=== PATIENT | female | born 1995 | race Caucasian/White ===

== ENCOUNTER 2017-12-08 01:42 | Inpatient (IN) | payer SELFPAY ==
[2017-12-08] MEDS ORDERED: Sodium Chloride 0.9% 10 ML Syringe FLUSH PRN (03:14)
[2017-12-08] MEDS ORDERED: Methylergonovine 0.2 MG/1 ML Amp IM PRN ×2 (03:14→14:18)
[2017-12-08] MEDS ORDERED: Lidocaine 1% 50 ML MDV INJECT PRN (03:14)
[2017-12-08] MEDS ORDERED: Misoprostol 200 MCG Tab PO PRN (03:14)
[2017-12-08] MEDS ORDERED: Butorphanol 1 MG/ML SDV IVPUSH PRN (03:14)
[2017-12-08] MEDS ORDERED: Carboprost Tromethamine 250 MCG/1 ML Amp IM PRN (03:14)
[2017-12-08] MEDS ORDERED: Sodium Chloride 0.9% 2.5 ML Syringe FLUSH PRN (03:14)
[2017-12-08] MEDS ORDERED: Tranexamic Acid 1,000 MG in Sodium Chloride 0.9% 100 ML IV PRN (03:14)
[2017-12-08] MEDS ORDERED: Water For Irrigation,Sterile 1,000 ML Container IRR PRN (03:14)
[2017-12-08] MEDS ORDERED: Oxytocin/0.9 % Sodium Chloride 30 UNIT/500 ML BAG IV SCH ×2 (03:15→08:30)
[2017-12-08] MEDS: Lactated Ringers 1,000 ML IV SCH ×2 (03:27→07:53)
[2017-12-08] MEDS: Nalbuphine 10 MG/1 ML Vial IVPUSH PRN ×2 (04:28→05:59)
--- NOTE | 2017-12-08 08:24 | PCM.PREANE ---
Preanesthetic Assessment - Anesthesia/Transfusion/Family Hx Anesthesia History: No Prior Anesthesia Family History of Anesthesia Reaction: No Transfusion History: No Prior Transfusion(s) - Review of Systems General: No Symptoms Pulmonary: No Symptoms Cardiovascular: No Symptoms Gastrointestinal: No Symptoms Neurological: No Symptoms Other: Reports: None - Physical Assessment Height: 5 ft 5 in Weight: 68.946 kg ASA Class: 2 Mental Status: Alert & Oriented x3 Airway Class: Mallampati = 2 Dentition: Reports: Normal Dentition Thyro-Mental Finger Breadths: 3 Mouth Opening Finger Breadths: 3 ROM/Head Extension: Full Lungs: Clear to Auscultation, Normal Respiratory Effort Cardiovascular: Regular Rate, Regular Rhythm - Lab Values: Laboratory Last Values WBC 9.37 K/uL (4.0-11.0) 12/08/17 03:24 RBC 4.20 M/uL (4.30-5.90) L 12/08/17 03:24 Hgb 13.5 g/dL (12.0-16.0) 12/08/17 03:24 Hct 38.8 % (36.0-46.0) 12/08/17 03:24 MCV 92.4 fL (80.0-98.0) 12/08/17 03:24 MCH 32.1 pg (27.0-32.0) H 12/08/17 03:24 MCHC 34.8 g/dL (31.0-37.0) 12/08/17 03:24 RDW Std Deviation 44.5 fl (28.0-62.0) 12/08/17 03:24 RDW Coeff of Cresencio 13 % (11.0-15.0) 12/08/17 03:24 Plt Count 196 K/uL (150-400) 12/08/17 03:24 MPV 10.00 fL (7.40-12.00) 12/08/17 03:24 Nucleated RBC % 0.0 /100WBC 12/08/17 03:24 Nucleated RBCs # 0 K/uL 12/08/17 03:24 Blood Type O POSITIVE 12/08/17 03:24 Antibody Screen NEGATIVE 12/08/17 03:24 - Allergies Allergies/Adverse Reactions: Allergies Allergy/AdvReac Type Severity Reaction Status Date / Time No Known Allergies Allergy Verified 12/08/17 03:13 - Acknowledgements Anesthesia Type Planned: Epidural Pt an Appropriate Candidate for the Planned Anesthesia: Yes Alternatives and Risks of Anesthesia Discussed w Pt/Guardian: Yes Pt/Guardian Understands and Agrees with Anesthesia Plan: Yes PreAnesthesia Questionnaire - Past Health History Medical/Surgical History: Denies Medical/Surgical History HEENT History: Reports: None Cardiovascular History: Reports: None Respiratory History: Reports: None Gastrointestinal History: Reports: GERD Genitourinary History: Reports: None [employer] History: Reports: , Spontaneous : 1 Para: 0 LMP (Approximate): Musculoskeletal History: Reports: None Neurological History: Reports: None Psychiatric History: Reports: None Endocrine/Metabolic History: Reports: None Hematologic History: Reports: None Immunologic History: Reports: None Oncologic (Cancer) History: Reports: None Dermatologic History: Reports: None - SUBSTANCE USE Smoking Status *Q: Never Smoker Second Hand Smoke Exposure: No Recreational Drug Use History: No - CURRENT (IN HOUSE) MEDS Current Meds: Current Medications Butorphanol Tartrate (Stadol) 1 mg IVPUSH ASDIRECTED PRN PRN Reason: Pain Last Admin: 12/08/17 03:31 Dose: 1 mg Carboprost Tromethamine (Hemabate Ds) 250 mcg IM ASDIRECTED PRN PRN Reason: Post Hemorrhage Lactated Ringer's (Ringers, Lactated) 1,000 mls @ 150 mls/hr IV ASDIRECTED DARYN Last Admin: 12/08/17 07:53 Dose: 150 mls/hr Oxytocin/Sodium Chloride (Oxytocin 30 Unit/500 Ml-Ns) 30 unit in 500 mls @ 999 mls/hr IV ASDIRECTED DARYN Tranexamic Acid 1,000 mg/ (Sodium Chloride) 110 mls @ 660 mls/hr IV ONETIME PRN PRN Reason: Bleeding Oxytocin/Sodium Chloride (Oxytocin 30 Unit/500 Ml-Ns) 30 unit in 500 mls @ 2 mls/hr IV TITRATE DARYN; 2 MUNITS/MIN PRN Reason: Protocol Lidocaine HCl (Xylocaine 1%) 50 ml INJECT .ONCE PRN PRN Reason: Laceration repair Methylergonovine Maleate (Methergine) 0.2 mg IM ASDIRECTED PRN PRN Reason: Post Hemorrhage Misoprostol (Cytotec) 200 mcg PO .ONCE PRN PRN Reason: Post Hemorrhage Nalbuphine HCl (Nubain) 10 mg IVPUSH Q1H PRN PRN Reason: Pain (severe 7-10) Last Admin: 12/08/17 05:59 Dose: 10 mg Sodium Chloride (Saline Flush) 10 ml FLUSH ASDIRECTED PRN PRN Reason: Keep Vein Open Sodium Chloride (Saline Flush) 2.5 ml FLUSH ASDIRECTED PRN PRN Reason: Keep Vein Open Sterile Water (Sterile Water For Irrigation) 1,000 ml IRR ASDIRECTED PRN PRN Reason: delivery Discontinued Medications Fentanyl/Bupivacaine HCl (Pogvconb-Peciy-Lw 2 Mcg/Ml-0.125%) Confirm Administered Dose 100 mls @ as directed EP .[facility] ONE Stop: 12/08/17 07:31
--- NOTE | 2017-12-08 14:16 | PCM.DEL ---
L & D Note - General Info Date of Service: 12/08/17 Mother's Due Date: 12/20/17 - Delivery Note Labor: Augmented by ARM, Augmented by Oxytocin Delivery Outcome: Livebirth Delivery Method: Spontaneous Vaginal Delivery-Single Presentation: Left Occiput Anterior (ELIZABET) Nuchal Cord: None Prep: Other Anesthesia Type: None, Local, Epidural Anesthetic: Lidocaine (Xylocaine) 1% Plain Local Anesthetic Volume: Other (10 ml) Episiotomy Type: None Laceration: 2nd Degree Suture type: Vicryl Suture size: 3-0 Placenta: Intact, Spontaneous Cord: 3 Vessels Estimated Blood Loss: 300 Resuscitation Needed: Yes Score 1 min: 7 Score 5 min: 8 - Patient Data Weight - Most Recent: 68.946 kg Lab Results Last 24 Hours: Laboratory Results - last 24 hr 12/08/17 12/08/17 Range/Units 03:24 03:24 WBC 9.37 (4.0-11.0) K/uL RBC 4.20 L (4.30-5.90) M/uL Hgb 13.5 (12.0-16.0) g/dL Hct 38.8 (36.0-46.0) % MCV 92.4 (80.0-98.0) fL MCH 32.1 H (27.0-32.0) pg MCHC 34.8 (31.0-37.0) g/dL RDW Std Deviation 44.5 (28.0-62.0) fl RDW Coeff of Cresencio 13 (11.0-15.0) % Plt Count 196 (150-400) K/uL MPV 10.00 (7.40-12.00) fL Nucleated RBC % 0.0 /100WBC Nucleated RBCs # 0 K/uL Blood Type O POSITIVE Antibody Screen NEGATIVE Med Orders - Current: Current Medications Butorphanol Tartrate (Stadol) 1 mg IVPUSH ASDIRECTED PRN PRN Reason: Pain Last Admin: 12/08/17 03:31 Dose: 1 mg Carboprost Tromethamine (Hemabate Ds) 250 mcg IM ASDIRECTED PRN PRN Reason: Post Hemorrhage Lactated Ringer's (Ringers, Lactated) 1,000 mls @ 150 mls/hr IV ASDIRECTED DARYN Last Admin: 12/08/17 07:53 Dose: 150 mls/hr Oxytocin/Sodium Chloride (Oxytocin 30 Unit/500 Ml-Ns) 30 unit in 500 mls @ 999 mls/hr IV ASDIRECTED DARYN Tranexamic Acid 1,000 mg/ (Sodium Chloride) 110 mls @ 660 mls/hr IV ONETIME PRN PRN Reason: Bleeding Oxytocin/Sodium Chloride (Oxytocin 30 Unit/500 Ml-Ns) 30 unit in 500 mls @ 2 mls/hr IV TITRATE DARYN; 2 MUNITS/MIN PRN Reason: Protocol Last Infusion: 12/08/17 10:22 Dose: 6 munits/min, 6 mls/hr Lidocaine HCl (Xylocaine 1%) 50 ml INJECT .ONCE PRN PRN Reason: Laceration repair Methylergonovine Maleate (Methergine) 0.2 mg IM ASDIRECTED PRN PRN Reason: Post Hemorrhage Misoprostol (Cytotec) 200 mcg PO .ONCE PRN PRN Reason: Post Hemorrhage Nalbuphine HCl (Nubain) 10 mg IVPUSH Q1H PRN PRN Reason: Pain (severe 7-10) Last Admin: 12/08/17 05:59 Dose: 10 mg Sodium Chloride (Saline Flush) 10 ml FLUSH ASDIRECTED PRN PRN Reason: Keep Vein Open Sodium Chloride (Saline Flush) 2.5 ml FLUSH ASDIRECTED PRN PRN Reason: Keep Vein Open Sterile Water (Sterile Water For Irrigation) 1,000 ml IRR ASDIRECTED PRN PRN Reason: delivery Discontinued Medications Fentanyl/Bupivacaine HCl (Qotqupoj-Vljhy-Om 2 Mcg/Ml-0.125%) Confirm Administered Dose 100 mls @ as directed EP .[facility]-MED ONE Stop: 12/08/17 07:31 Last Admin: 12/08/17 08:40 Dose: Not Given - Problem List & Annotations (1) Vaginal delivery SNOMED Code(s): 074991874 Code(s): O80 - ENCOUNTER FOR FULL-TERM UNCOMPLICATED DELIVERY Status: Acute Current Visit: Yes - Problem List Review Problem List Initiated/Reviewed/Updated: Yes
[2017-12-08] MEDS ORDERED: oxyCODONE 5 MG Tab PO PRN (14:18)
[2017-12-08] MEDS ORDERED: Acetaminophen 500 MG Tab PO PRN ×2 (14:18)
[2017-12-08] MEDS ORDERED: Bisacodyl 10 MG Supp RECTAL PRN (14:18)
[2017-12-08] MEDS ORDERED: Ibuprofen 400 MG Tab PO PRN (14:18)
[2017-12-08] MEDS ORDERED: Docusate Sodium 100 MG Cap PO PRN (14:18)
[2017-12-08] MEDS ORDERED: Witch Hazel Medicated Pads 40/Jar TOP PRN (14:18)
[2017-12-08] MEDS ORDERED: Lanolin 100% Cream 7 GM Tube TOP PRN (14:18)
[2017-12-08] MEDS ORDERED: Benzocaine/Menthol 20%-0.5% Spray 78 GM Cannister TOP PRN (14:18)
--- NOTE | 2017-12-08 14:54 | OR ---
SURGEON: Rhonda Bautista M.D. DATE OF PROCEDURE: 12/08/2017 PREOPERATIVE DIAGNOSIS: A 38 and 2/7th week intrauterine , active spontaneous labor. POSTOPERATIVE DIAGNOSIS: A 38 and 2/7th week intrauterine , active spontaneous labor. PROCEDURE: Pitocin augmentation of labor, term spontaneous vaginal delivery, repair of second-degree laceration. ANESTHESIA: Epidural. ESTIMATED BLOOD LOSS: Less than 300 mL. FINDINGS: Live born female, score 7 and 8, weighing 3570 g. Placenta, spontaneous. Schultze intact with 3 vessels. Second-degree perineal laceration repaired. COMPLICATIONS: None known. Mother and baby in LDRP in good condition. BRIEF HISTORY: This is a 22-year-old female. She is G2, P0-0-1-0. She presents at 38 and 4/7th weeks' gestation in active spontaneous labor and she has had uncomplicated care with Dr. Smith, for whom I am covering. She presented initially 2 to 3 cm, she did change to 4 cm dilation. She is group B strep negative. She had minimal change house attendant 3 - 4 hours. Once she had reached 4 cm dilatation, artificial rupture of membranes was performed. Clear fluid noted and Pitocin augmentation was initiated. She progressed to complete. DESCRIPTION OF PROCEDURE: With the patient in dorsal lithotomy position, the patient pushed over a 1-hour and 15-minute time period to a 5+ station, at which time the head was delivered spontaneously and atraumatically over the perineum with support with subsequent delivery of the 's shoulders and body without any difficulty. The was bulb suctioned by nose and mouth and handed to the mother in the presence of the nurse attending delivery. The infant is a liveborn female, score 7 and 8, weighing 3570 g. After the cord had ceased to pulsate, it was doubly clamped and cut and Pitocin was initiated to assist with delivery of the placenta, which was delivered spontaneously, Schultze intact with 3 vessels. Upon inspection of the pelvis and perineum, there were no periurethral, vaginal sidewall, cervical, or rectal lacerations. There was a second-degree perineal laceration, which was treated with 10 mL of 1% lidocaine followed by 3-0 Polysorb in a running locked fashion for the vaginal mucosa, a deep running suture of the same for the perineum, and a subcuticular suture of the same for the skin. There was a small abrasion that was bleeding at the 7 o'clock position of the vaginal introitus. A single [id number]-[id number] suture was placed for hemostasis. Final sponge, needle, and instrument counts were correct. There were no known complications. Mother and baby remained in LDRP in good condition. RAY NORTH /[id number] [id number]
[2017-12-08] MEDS: Ibuprofen 800 MG Tab PO PRN ×2 (15:54→22:30)
--- NOTE | 2017-12-08 18:08 | PCM48HPAN ---
Post Anesthesia Note - EVALUATION WITHIN 48HRS OF ANESTHETIC Vital Signs in Normal Range: Yes Patient Participated in Evaluation: Yes Respiratory Function Stable: Yes Airway Patent: Yes Cardiovascular Function Stable: Yes Hydration Status Stable: Yes Pain Control Satisfactory: Yes Nausea and Vomiting Control Satisfactory: Yes Mental Status Recovered: Yes - COMMENTS/OBSERVATIONS Free Text/Narrative:: Sitting up in bed and denies any complaints at this time.
[2017-12-09] MEDS: Ibuprofen 800 MG Tab PO PRN (09:25)
--- NOTE | 2017-12-09 14:10 | PCM.PNPP ---
- General Info Date of Service: 12/09/17 Functional Status: Reports: Pain Controlled, Tolerating Diet, Ambulating, Urinating - Review of Systems General: Reports: No Symptoms HEENT: Reports: No Symptoms Pulmonary: Reports: No Symptoms Cardiovascular: Reports: No Symptoms Gastrointestinal: Reports: No Symptoms Genitourinary: Reports: No Symptoms Musculoskeletal: Reports: No Symptoms Skin: Reports: No Symptoms Neurological: Reports: No Symptoms Psychiatric: Reports: No Symptoms - Patient Data Vital Signs - Most Recent: Last Vital Signs Temp 36.6 C 12/09/17 07:30 Pulse 76 12/09/17 07:30 Resp 16 12/09/17 07:30 BP 115/66 12/09/17 07:30 Pulse Ox 96 12/09/17 07:30 Weight - Most Recent: 68.946 kg Lab Results - Last 24 Hours: Laboratory Results - last 24 hr 12/09/17 Range/Units 05:33 Hgb 12.1 (12.0-16.0) g/dL Hct 34.6 L (36.0-46.0) % Med Orders - Current: Current Medications Acetaminophen (Tylenol Extra Strength) 500 mg PO Q4H PRN PRN Reason: Pain Acetaminophen (Tylenol Extra Strength) 1,000 mg PO Q4H PRN PRN Reason: Pain Benzocaine/Menthol (Dermoplast Pain Relief 20%-0.5% [place]) 78 gm TOP ASDIRECTED PRN PRN Reason: Perineal Comfort Measure Last Admin: 12/08/17 15:53 Dose: 1 can Bisacodyl (Dulcolax) 10 mg RECTAL .ONCE PRN PRN Reason: Constipation Docusate Sodium (Colace) 100 mg PO BID PRN PRN Reason: Constipation Emollient Ointment (Lansinoh Hpa) 0 gm TOP ASDIRECTED PRN PRN Reason: Sore Nipples Last Admin: 12/08/17 15:54 Dose: 1 tube Ibuprofen (Motrin) 400 mg PO Q4H PRN PRN Reason: Pain Ibuprofen (Motrin) 800 mg PO Q6H PRN PRN Reason: Pain Last Admin: 12/09/17 09:25 Dose: 800 mg Methylergonovine Maleate (Methergine) 0.2 mg IM .ONCE PRN PRN Reason: Excessive Vaginal Bleeding Oxycodone HCl (Oxycodone) 5 mg PO Q2H PRN PRN Reason: Pain Witch Buffy (Tucks) 1 pad TOP ASDIRECTED PRN PRN Reason: comfort care Last Admin: 12/08/17 16:54 Dose: 1 tub Discontinued Medications Butorphanol Tartrate (Stadol) 1 mg IVPUSH ASDIRECTED PRN PRN Reason: Pain Last Admin: 12/08/17 03:31 Dose: 1 mg Carboprost Tromethamine (Hemabate Ds) 250 mcg IM ASDIRECTED PRN PRN Reason: Post Hemorrhage Lactated Ringer's (Ringers, Lactated) 1,000 mls @ 150 mls/hr IV ASDIRECTED DARYN Last Admin: 12/08/17 07:53 Dose: 150 mls/hr Oxytocin/Sodium Chloride (Oxytocin 30 Unit/500 Ml-Ns) 30 unit in 500 mls @ 999 mls/hr IV ASDIRECTED DARYN Tranexamic Acid 1,000 mg/ (Sodium Chloride) 110 mls @ 660 mls/hr IV ONETIME PRN PRN Reason: Bleeding Fentanyl/Bupivacaine HCl (Azecscao-Fblcd-Qa 2 Mcg/Ml-0.125%) Confirm Administered Dose 100 mls @ as directed EP .[facility]-MED ONE Stop: 12/08/17 07:31 Last Admin: 12/08/17 08:40 Dose: Not Given Oxytocin/Sodium Chloride (Oxytocin 30 Unit/500 Ml-Ns) 30 unit in 500 mls @ 2 mls/hr IV TITRATE DARYN; 2 MUNITS/MIN PRN Reason: Protocol Last Infusion: 12/08/17 10:22 Dose: 6 munits/min, 6 mls/hr Lidocaine HCl (Xylocaine 1%) 50 ml INJECT .ONCE PRN PRN Reason: Laceration repair Last Admin: 12/08/17 14:21 Dose: 50 ml Methylergonovine Maleate (Methergine) 0.2 mg IM ASDIRECTED PRN PRN Reason: Post Hemorrhage Misoprostol (Cytotec) 200 mcg PO .ONCE PRN PRN Reason: Post Hemorrhage Nalbuphine HCl (Nubain) 10 mg IVPUSH Q1H PRN PRN Reason: Pain (severe 7-10) Last Admin: 12/08/17 05:59 Dose: 10 mg Sodium Chloride (Saline Flush) 10 ml FLUSH ASDIRECTED PRN PRN Reason: Keep Vein Open Sodium Chloride (Saline Flush) 2.5 ml FLUSH ASDIRECTED PRN PRN Reason: Keep Vein Open Sterile Water (Sterile Water For Irrigation) 1,000 ml IRR ASDIRECTED PRN PRN Reason: delivery Last Admin: 12/08/17 14:21 Dose: 1,000 ml - Interaction Infant Disposition, : Abrams in Room with Family Infant Interaction: Holding Infant Feeding: Breastfed Infant; Nursed Well Support Person: - Recovery Exam Fundal Tone: Firm Fundal Level: 1 Fingerbreadths Below Umbilicus Fundal Placement: Midline Lochia Amount: Scant Lochia Color: Rubra/Red Perineum Description: Other (see below) Other Perinuem Description: 2nd degree laceration Episiotomy/Laceration: Approximated Bladder Status: Voiding Urinary Elimination: Voided - Exam General: Alert, Oriented HEENT: Pupils Equal Neck: Supple Lungs: Normal Respiratory Effort GI/Abdominal Exam: Soft, Non-Tender, No Organomegaly, No Distention, No Abnormal Bruit, No Mass, Pelvis Stable Extremities: Normal Inspection, Normal Range of Motion, Non-Tender, No Pedal Edema, Normal Capillary Refill Skin: Warm, Dry, Intact Neurological: No New Focal Deficit Psy/Mental Status: Alert, Normal Affect, Normal Mood - Problem List & Annotations (1) Vaginal delivery SNOMED Code(s): 180813242 Code(s): O80 - ENCOUNTER FOR FULL-TERM UNCOMPLICATED DELIVERY Status: Acute Current Visit: Yes - Problem List Review Problem List Initiated/Reviewed/Updated: Yes - My Orders Last 24 Hours: My Active Orders 12/08/17 14:18 Patient Status [ADT] Routine May Shower [RC] ASDIRECTED Up ad Mariann [RC] ASDIRECTED Vital Signs [RC] PER UNIT ROUTINE Acetaminophen [Tylenol Extra Strength] 1,000 mg PO Q4H PRN Acetaminophen [Tylenol Extra Strength] 500 mg PO Q4H PRN Benzocaine/Menthol [Dermoplast Pain Relief 20%-0.5% [place]] 78 gm TOP ASDIRECTED PRN Bisacodyl [Dulcolax] 10 mg RECTAL .ONCE PRN Docusate Sodium [Colace] 100 mg PO BID PRN Ibuprofen [Motrin] 400 mg PO Q4H PRN Ibuprofen [Motrin] 800 mg PO Q6H PRN Lanolin [Lansinoh HPA] See Dose Instructions TOP ASDIRECTED PRN Methylergonovine [Methergine] 0.2 mg IM .ONCE PRN Witch Buffy [Tucks] 1 pad TOP ASDIRECTED PRN oxyCODONE 5 mg PO Q2H PRN Assess Lochia [WOMSER] Per Unit Routine Assess Uterine Involution [WOMSER] Per Unit Routine Peripheral IV Discontinue [OM.PC] Routine Resuscitation Status Routine 12/08/17 14:19 Perineal Care [OM.PC] Per Unit Routine 12/08/17 Dinner Regular Diet [DIET] - Assessment Assessment:: PPD#1 after stable, minimal lochia, well, would like to go home today. - Plan Plan:: Discharge instructions reveiwed, dismiss to home today, follow up with Dr. Smith.
== END 2017-12-09 17:45 | disposition home or self-care (01) | DRG 775 ==
LOC: MW.OBCHECK 01:42 → MW.OB 01:47 → MW.OBCHECK 03:14 → MW.OB 03:14 → OBSVTOIN 14:18 → MW.OB 17:27
PROVIDERS: ADMIT Obstetrics & Gynecology; ATTEND Obstetrics & Gynecology
PROC: 10E0XZZ Delivery of Products of Conception, External Approach (ICD-10-PCS; principal; 2017-12-08)
PROC: 0KQM0ZZ Repair Perineum Muscle, Open Approach (ICD-10-PCS; 2017-12-08)
PROC: 10907ZC Drainage of Amniotic Fluid, Therapeutic from Products of Conception, Via Natural or Artificial Opening (ICD-10-PCS; 2017-12-08)
DX: O70.1 Second degree perineal laceration during delivery (principal); Z37.0 Single live birth; Z3A.38 38 weeks gestation of pregnancy
CPT/HCPCS: 36415; 51702; 59025; 59409; 85014; 85018; 85027; 86850; 86900; 86901; A9270-GY; J0595; J2300; J2590; J7120

== ENCOUNTER 2018-12-03 20:20 | Inpatient (IN) | payer SELFPAY ==
[2018-12-03] MEDS ORDERED: Sodium Chloride 0.9% 10 ML SDV IV PRN (20:31)
[2018-12-03] MEDS ORDERED: Tranexamic Acid 1,000 MG in Sodium Chloride 0.9% 100 ML IV PRN (20:31)
[2018-12-03] MEDS ORDERED: Butorphanol 1 MG/ML SDV IVPUSH PRN (20:31)
[2018-12-03] MEDS ORDERED: Carboprost Tromethamine 250 MCG/1 ML Amp IM PRN (20:31)
[2018-12-03] MEDS ORDERED: Water For Irrigation,Sterile 1,000 ML Container IRR PRN (20:31)
[2018-12-03] MEDS ORDERED: Methylergonovine 0.2 MG/1 ML Amp IM PRN (20:31)
[2018-12-03] MEDS ORDERED: Sodium Chloride 0.9% 10 ML Syringe FLUSH PRN (20:31)
[2018-12-03] MEDS ORDERED: Misoprostol 200 MCG Tab PO PRN (20:31)
[2018-12-03] MEDS ORDERED: Sodium Chloride 0.9% 2.5 ML Syringe FLUSH PRN (20:31)
[2018-12-03] MEDS ORDERED: Lidocaine 1% 50 ML MDV INJECT PRN (20:31)
[2018-12-03] MEDS ORDERED: Nalbuphine 10 MG/1 ML Vial IVPUSH PRN (20:31)
[2018-12-03] MEDS ORDERED: Sodium Chloride 0.9% 0 ML ONE (20:32)
[2018-12-03] MEDS ORDERED: Lactated Ringers 1,000 ML IV SCH (20:45)
[2018-12-03] MEDS ORDERED: Oxytocin/0.9 % Sodium Chloride 30 UNIT/500 ML BAG IV SCH (20:45)
[2018-12-03] MEDS: Ampicillin 2 GM AdvVial IV ONE ×2 (20:45→20:47)
[2018-12-03] MEDS ORDERED: Ampicillin 2 GM in Sodium Chloride 0.9% 50 ML IV SCH (21:00)
--- NOTE | 2018-12-03 21:20 | PCM.LDHP ---
L&D History of Present Illness - General Date of Service: 12/03/18 Admit Problem/Dx: Patient Status Order with Admit Dx/Problem 12/03/18 20:31 Patient Status [ADT] Routine Admission Diagnosis/Problem Admission Diagnosis/Problem 12/03/18 21:14 23yo EDC 12/15/2018 38 2/7wks O+, RI, GBS pos. Comes in active labor. 6cm , intact Source of Information: Patient History Limitations: Reports: No Limitations - History of Present Illness Timing/Duration: Reports: minutes: Location, : Reports: Abdomen Quality: Reports: Ache, Stabbing Pain Score: 10 Improves with: Reports: None Worsens with: Reports: None Associated Symptoms: Reports: N - Related Data Allergies/Adverse Reactions: Allergies Allergy/AdvReac Type Severity Reaction Status Date / Time No Known Allergies Allergy Verified 12/08/17 03:13 Past Medical History - Past Health History Medical/Surgical History: Denies Medical/Surgical History HEENT History: Reports: None Cardiovascular History: Reports: None Respiratory History: Reports: None Gastrointestinal History: Reports: GERD Genitourinary History: Reports: None [employer]PERATOR History: 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: , Spontaneous Musculoskeletal History: Reports: None Neurological History: Reports: None Psychiatric History: Reports: None Endocrine/Metabolic History: Reports: None Hematologic History: Reports: None Immunologic History: Reports: None Oncologic (Cancer) History: Reports: None Dermatologic History: Reports: None Social & Family History - Family History Family Medical History: Noncontributory - Caffeine Use Caffeine Use: Reports: Coffee, Soda H&P Review of Systems - Review of Systems: Review Of Systems: See Below General: Reports: No Symptoms HEENT: Reports: No Symptoms Pulmonary: Reports: No Symptoms Cardiovascular: Reports: No Symptoms Gastrointestinal: Reports: No Symptoms Genitourinary: Reports: No Symptoms Musculoskeletal: Reports: No Symptoms Skin: Reports: No Symptoms Psychiatric: Reports: No Symptoms Neurological: Reports: No Symptoms Hematologic/Lymphatic: Reports: No Symptoms Immunologic: Reports: No Symptoms L&D Exam - Exam Exam: See Below - Vital Signs Weight: 81.647 kg - OB Specific Contraction Intensity: Strong Movement: Active Heart Tones: Present Heart Tones per Min: 140 Heart Rate (FHR) Variability: Moderate (6-25 bmp) Presentation: Vertex - Farfan Score Farfan Score Cervix Position: Midposition Farfan Score Consistency: Soft Farfan Score Effacement: >80% Farfan Score Dilation: > 5 cm Farfan Score Infant's Station: -1 ,0 Farfan Score Total: 11 - Exam General: Alert, Oriented, Cooperative HEENT: Hearing Intact Lungs: Normal Respiratory Effort GI/Abdominal Exam: Soft, Non-Tender Rectal Exam: Deferred Genitourinary: Normal external exam, Normal bimanual exam, Cervical dilitation. No: Cervical fluid, Vaginal bleeding Back Exam: Normal Inspection, Full Range of Motion Extremities: Normal Inspection, Normal Range of Motion, Non-Tender, No Pedal Edema, Normal Capillary Refill Skin: Warm, Dry, Intact Neurological: Cranial Nerves Intact, Reflexes Equal Bilateral, Strength Equal Bilateral, Normal Gait, Normal Speech, Normal Tone Psychiatric: Alert, Normal Affect, Normal Mood - Patient Data Lab Results Last 24 hrs: Laboratory Results - last 24 hr 12/03/18 Range/Units 20:42 WBC 8.04 (4.0-11.0) K/uL RBC 4.10 L (4.30-5.90) M/uL Hgb 13.0 (12.0-16.0) g/dL Hct 37.5 (36.0-46.0) % MCV 91.5 (80.0-98.0) fL MCH 31.7 (27.0-32.0) pg MCHC 34.7 (31.0-37.0) g/dL RDW Std Deviation 43.3 (28.0-62.0) fl RDW Coeff of Cresencio 13 (11.0-15.0) % Plt Count 238 (150-400) K/uL MPV 10.80 (7.40-12.00) fL Nucleated RBC % 0.0 /100WBC Nucleated RBCs # 0 K/uL Result Diagrams: 12/03/18 20:42 - Problem List (1) Supervision of normal IUP (intrauterine ) in multigravida SNOMED Code(s): 879869381, 839879365, 913978140 ICD Code: Z34.80 - ENCOUNTER FOR SUPRVSN OF NORMAL , UNSP TRIMESTER Status: Acute Priority: High Current Visit: Yes Qualifiers: Trimester: third trimester Qualified Code(s): Z34.83 - Encounter for supervision of other normal , third trimester Problem List Initiated/Reviewed/Updated: Yes Orders Last 24hrs: Active Orders 24 hr Category Date Time Status Patient Status [ADT] Routine ADT 12/03/18 20:31 Active Heart Tones [RC] CONTINUOUS Care 12/03/18 20:31 Active Non Stress Test [RC] PER UNIT ROUTINE Care 12/03/18 20:31 Active May Shower [RC] ASDIRECTED Care 12/03/18 20:31 Active Notify Provider [RC] PRN Care 12/03/18 20:31 Active Up ad Mariann [RC] ASDIRECTED Care 12/03/18 20:31 Active Vaginal Exam [RC] PRN Care 12/03/18 20:31 Active Vital Signs [RC] PER UNIT ROUTINE Care 12/03/18 20:31 Active TYPE AND SCREEN [BBK] Routine Lab 12/03/18 20:42 Received Ampicillin 2 gm Med 12/03/18 21:00 Active Sodium Chloride 0.9% [Normal Saline] 50 ml IV Q6H Butorphanol [Stadol] Med 12/03/18 20:31 Active 1 mg IVPUSH Q1H PRN Carboprost Tromethamine [Hemabate DS] Med 12/03/18 20:31 Active 250 mcg IM ASDIRECTED PRN Lactated Ringers [Ringers, Lactated] 1,000 ml Med 12/03/18 20:45 Active IV ASDIRECTED Lidocaine 1% [Xylocaine 1%] Med 12/03/18 20:31 Active 50 ml INJECT ONETIME PRN Methylergonovine [Methergine] Med 12/03/18 20:31 Active 0.2 mg IM ASDIRECTED PRN Nalbuphine [Nubain] Med 12/03/18 20:31 Active 10 mg IVPUSH Q1H PRN Oxytocin/0.9 % Sodium Chloride [Oxytocin 30 Unit/500 ML Med 12/03/18 20:45 Active -NS] 30 unit in 500 ml IV TITRATE Sodium Chloride 0.9% [Normal Saline] Med 12/03/18 20:31 Active 10 ml IV ASDIRECTED PRN Sodium Chloride 0.9% [Saline Flush] Med 12/03/18 20:31 Active 10 ml FLUSH ASDIRECTED PRN Sodium Chloride 0.9% [Saline Flush] Med 12/03/18 20:31 Active 2.5 ml FLUSH ASDIRECTED PRN Tranexamic Acid [Cyklokapron] 1,000 mg Med 12/03/18 20:31 Active Sodium Chloride 0.9% [Normal Saline] 100 ml IV ONETIME Water For Irrigation,Sterile [Sterile Water for Med 12/03/18 20:31 Active Irrigation] 1,000 ml IRR ASDIRECTED PRN miSOPROStol [Cytotec] Med 12/03/18 20:31 Active 200 mcg PO ONETIME PRN Scalp Electrode [WOMSER] Per Unit Routine Oth 12/03/18 20:31 Ordered Peripheral IV Insertion Adult [OM.PC] Routine Oth 12/03/18 20:31 Ordered Resuscitation Status Routine Resus Stat 12/03/18 20:31 Ordered Medication Orders Butorphanol Tartrate (Stadol) 1 mg IVPUSH Q1H PRN PRN Reason: Pain Carboprost Tromethamine (Hemabate Ds) 250 mcg IM ASDIRECTED PRN PRN Reason: Post Hemorrhage Lactated Ringer's (Ringers, Lactated) 1,000 mls @ 150 mls/hr IV ASDIRECTED [facility] Last Admin: 12/03/18 21:01 Dose: 999 mls/hr Oxytocin/Sodium Chloride (Oxytocin 30 Unit/500 Ml-Ns) 30 unit in 500 mls @ 555 mls/hr IV TITRATE [facility] Tranexamic Acid 1,000 mg/ (Sodium Chloride) 110 mls @ 660 mls/hr IV ONETIME PRN PRN Reason: Bleeding Ampicillin Sodium 2 gm/ Sodium (Chloride) 50 mls @ 100 mls/hr IV Q6H [facility] Lidocaine HCl (Xylocaine 1%) 50 ml INJECT ONETIME PRN PRN Reason: Laceration repair Methylergonovine Maleate (Methergine) 0.2 mg IM ASDIRECTED PRN PRN Reason: Post Hemorrhage Misoprostol (Cytotec) 200 mcg PO ONETIME PRN PRN Reason: Post Hemorrhage Nalbuphine HCl (Nubain) 10 mg IVPUSH Q1H PRN PRN Reason: Pain (severe 7-10) Last Admin: 12/03/18 20:55 Dose: 10 mg Sodium Chloride (Saline Flush) 10 ml FLUSH ASDIRECTED PRN PRN Reason: Keep Vein Open Sodium Chloride (Saline Flush) 2.5 ml FLUSH ASDIRECTED PRN PRN Reason: Keep Vein Open Sodium Chloride (Normal Saline) 10 ml IV ASDIRECTED PRN PRN Reason: IV Use Sterile Water (Sterile Water For Irrigation) 1,000 ml IRR ASDIRECTED PRN PRN Reason: delivery Assessment/Plan Comment:: Labor A: 23yo EDC 12/15/2018 38 2/7wks O+, RI, GBS pos. Comes in active labor. 6cm, intact P: Admit, Amp for GBS pos. IV pain meds until epidural, anticipate . Dr Smith updated
[2018-12-03] MEDS ORDERED: Lidocaine HCl/EPINEPHrine 5 ML IJ ONE (21:44)
[2018-12-03] MEDS ORDERED: fentaNYL 100 MCG/2 ML SDV ONE (21:44)
--- NOTE | 2018-12-03 23:00 | PCM.PREANE ---
Preanesthetic Assessment - Anesthesia/Transfusion/Family Hx Anesthesia History: Prior Anesthesia Without Reaction Family History of Anesthesia Reaction: No Transfusion History: No Prior Transfusion(s) - Review of Systems General: No Symptoms Pulmonary: No Symptoms Cardiovascular: No Symptoms Gastrointestinal: No Symptoms Neurological: No Symptoms Other: Reports: None, Anxiety - Physical Assessment Height: 5 ft 5 in Weight: 81.647 kg ASA Class: 2 Mental Status: Alert & Oriented x3 Airway Class: Mallampati = 2 Dentition: Reports: Normal Dentition ROM/Head Extension: Full Lungs: Clear to Auscultation Cardiovascular: Regular Rate - Lab Values: Laboratory Last Values WBC 8.04 K/uL (4.0-11.0) 12/03/18 20:42 RBC 4.10 M/uL (4.30-5.90) L 12/03/18 20:42 Hgb 13.0 g/dL (12.0-16.0) 12/03/18 20:42 Hct 37.5 % (36.0-46.0) 12/03/18 20:42 MCV 91.5 fL (80.0-98.0) 12/03/18 20:42 MCH 31.7 pg (27.0-32.0) 12/03/18 20:42 MCHC 34.7 g/dL (31.0-37.0) 12/03/18 20:42 RDW Std Deviation 43.3 fl (28.0-62.0) 12/03/18 20:42 RDW Coeff of Cresencio 13 % (11.0-15.0) 12/03/18 20:42 Plt Count 238 K/uL (150-400) 12/03/18 20:42 MPV 10.80 fL (7.40-12.00) 12/03/18 20:42 Nucleated RBC % 0.0 /100WBC 12/03/18 20:42 Nucleated RBCs # 0 K/uL 12/03/18 20:42 Blood Type O POSITIVE 12/03/18 20:42 Antibody Screen NEGATIVE 12/03/18 20:42 - Allergies Allergies/Adverse Reactions: Allergies Allergy/AdvReac Type Severity Reaction Status Date / Time No Known Allergies Allergy Verified 12/08/17 03:13 - Blood Blood Available: No Product(s) Available: None - Anesthesia Plan Pre-Op Medication Ordered: None - Acknowledgements Anesthesia Type Planned: Epidural Pt an Appropriate Candidate for the Planned Anesthesia: Yes Alternatives and Risks of Anesthesia Discussed w Pt/Guardian: Yes Pt/Guardian Understands and Agrees with Anesthesia Plan: Yes PreAnesthesia Questionnaire - Past Health History Medical/Surgical History: Denies Medical/Surgical History HEENT History: Reports: None Cardiovascular History: Reports: None Respiratory History: Reports: None Gastrointestinal History: Reports: GERD Genitourinary History: Reports: None 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: , 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 Musculoskeletal History: Reports: None Neurological History: Reports: None Psychiatric History: Reports: None Endocrine/Metabolic History: Reports: None Hematologic History: Reports: None Immunologic History: Reports: None Oncologic (Cancer) History: Reports: None Dermatologic History: Reports: None - CURRENT (IN HOUSE) MEDS Current Meds: Current Medications Butorphanol Tartrate (Stadol) 1 mg IVPUSH Q1H PRN PRN Reason: Pain Carboprost Tromethamine (Hemabate Ds) 250 mcg IM ASDIRECTED PRN PRN Reason: Post Hemorrhage Lactated Ringer's (Ringers, Lactated) 1,000 mls @ 150 mls/hr IV ASDIRECTED [facility] Last Admin: 12/03/18 21:01 Dose: 999 mls/hr Oxytocin/Sodium Chloride (Oxytocin 30 Unit/500 Ml-Ns) 30 unit in 500 mls @ 555 mls/hr IV TITRATE [facility] Tranexamic Acid 1,000 mg/ (Sodium Chloride) 110 mls @ 660 mls/hr IV ONETIME PRN PRN Reason: Bleeding Ampicillin Sodium 2 gm/ Sodium (Chloride) 50 mls @ 100 mls/hr IV Q6H [facility] Lidocaine HCl (Xylocaine 1%) 50 ml INJECT ONETIME PRN PRN Reason: Laceration repair Methylergonovine Maleate (Methergine) 0.2 mg IM ASDIRECTED PRN PRN Reason: Post Hemorrhage Misoprostol (Cytotec) 200 mcg PO ONETIME PRN PRN Reason: Post Hemorrhage Nalbuphine HCl (Nubain) 10 mg IVPUSH Q1H PRN PRN Reason: Pain (severe 7-10) Last Admin: 12/03/18 20:55 Dose: 10 mg Sodium Chloride (Saline Flush) 10 ml FLUSH ASDIRECTED PRN PRN Reason: Keep Vein Open Sodium Chloride (Saline Flush) 2.5 ml FLUSH ASDIRECTED PRN PRN Reason: Keep Vein Open Sodium Chloride (Normal Saline) 10 ml IV ASDIRECTED PRN PRN Reason: IV Use Sterile Water (Sterile Water For Irrigation) 1,000 ml IRR ASDIRECTED PRN PRN Reason: delivery Discontinued Medications Ampicillin Sodium (Ampicillin) Confirm Administered Dose 2 gm IV .STK-MED ONE Stop: 12/03/18 20:33 Last Admin: 12/03/18 20:47 Dose: 2 gm Fentanyl (Sublimaze) Confirm Administered Dose 100 mcg .ROUTE .STK-MED ONE Stop: 12/03/18 21:45 Sodium Chloride (Normal Saline) Confirm Administered Dose 100 mls @ as directed .ROUTE .STK-MED ONE Stop: 12/03/18 20:33 Fentanyl/Bupivacaine HCl (Fexiquuc-Ipuhm-Ti 2 Mcg/Ml-0.125%) Confirm Administered Dose 100 mls @ as directed .ROUTE .STK-MED ONE Stop: 12/03/18 21:45 Lidocaine/Epinephrine (Lidocaine 1.5%-Epi 1:200,000) Confirm Administered Dose 5 ml IJ .STK-MED ONE Stop: 12/03/18 21:45
[2018-12-04] MEDS ORDERED: Ampicillin 1 GM in Sodium Chloride 0.9% 50 ML IV SCH (00:30)
[2018-12-04] MEDS ORDERED: Ampicillin 1 GM AdvVial IV ONE (00:34)
[2018-12-04] MEDS ORDERED: Terbutaline 1 MG/ML SDV ONE (00:37)
[2018-12-04] MEDS ORDERED: Sodium Chloride 0.9% 50 ML ONE (00:40)
[2018-12-04] MEDS: Ampicillin 2 GM AdvVial IV ONE (00:45)
[2018-12-04] MEDS ORDERED: Bupivacaine 0.25% 10 ML SDV ONE (00:53)
--- NOTE | 2018-12-04 02:23 | PCM.DEL ---
L & D Note - General Info Date of Service: 12/04/18 Mother's Due Date: 12/15/18 - Delivery Note Labor: Spontaneous Delivery Outcome: Livebirth Infant Delivery Method: Spontaneous Vaginal Delivery-Single Delivery Mode: Spontaneous Presentation: Vertex Nuchal Cord: Present (x2 loose) Anesthesia Type: Epidural Anesthetic: Lidocaine (Xylocaine) 1% Plain Local Anesthetic Volume: 1cc Amniotic Fluid Description: Clear Episiotomy Type: None Laceration: 1st Degree Suture type: Vicryl Suture size: 3-0 Placenta: Intact, Spontaneous Cord: 3 Vessels Estimated Blood Loss: 100 Resuscitation Needed: No Score 1 min: 9 Score 5 min: 10 Second Stage Interventions: Reports: Pushing, Pulls Own Legs Back Delivery Comments (Free Text/Narrative):: of viable male, head delivered with good pushing, nuchal x2 reduced over head, shoulder and body followed easily. Infant with spont cry placed on mothers abd with RN at for evaluation. Delayed cord clamping. Pitocin to IVF. Cord clamped and cut by FOB. Cord blood collected. Placenta delivered grossly intact. Inspection noted 1st deg lac that was repaired in the usual manor with a 3-0 adina under 1% lidocaine. EBL 100cc. APGARS 9/10 Wt: 7lb 8oz. MOther and baby left in stable condition for recovery. - General Info Date of Service: 12/04/18 Admission Dx/Problem (Free Text): Patient Status Order with Admit Dx/Problem 12/03/18 20:31 Patient Status [ADT] Routine Admission Diagnosis/Problem Admission Diagnosis/Problem 12/03/18 21:14 23yo EDC 12/15/2018 38 2/7wks O+, RI, GBS pos. Comes in active labor. 6cm , intact Functional Status: Reports: Pain Controlled - Review of Systems General: Reports: No Symptoms HEENT: Reports: No Symptoms Pulmonary: Reports: No Symptoms Cardiovascular: Reports: No Symptoms Gastrointestinal: Reports: No Symptoms Genitourinary: Reports: No Symptoms Musculoskeletal: Reports: No Symptoms Skin: Reports: No Symptoms Neurological: Reports: No Symptoms Psychiatric: Reports: No Symptoms - Patient Data Weight - Most Recent: 81.647 kg Lab Results Last 24 Hours: Laboratory Results - last 24 hr 12/03/18 12/03/18 Range/Units 20:42 20:42 WBC 8.04 (4.0-11.0) K/uL RBC 4.10 L (4.30-5.90) M/uL Hgb 13.0 (12.0-16.0) g/dL Hct 37.5 (36.0-46.0) % MCV 91.5 (80.0-98.0) fL MCH 31.7 (27.0-32.0) pg MCHC 34.7 (31.0-37.0) g/dL RDW Std Deviation 43.3 (28.0-62.0) fl RDW Coeff of Cresencio 13 (11.0-15.0) % Plt Count 238 (150-400) K/uL MPV 10.80 (7.40-12.00) fL Nucleated RBC % 0.0 /100WBC Nucleated RBCs # 0 K/uL Blood Type O POSITIVE Antibody Screen NEGATIVE Med Orders - Current: Current Medications Butorphanol Tartrate (Stadol) 1 mg IVPUSH Q1H PRN PRN Reason: Pain Carboprost Tromethamine (Hemabate Ds) 250 mcg IM ASDIRECTED PRN PRN Reason: Post Hemorrhage Lactated Ringer's (Ringers, Lactated) 1,000 mls @ 150 mls/hr IV ASDIRECTED [facility] Last Admin: 12/03/18 21:01 Dose: 999 mls/hr Oxytocin/Sodium Chloride (Oxytocin 30 Unit/500 Ml-Ns) 30 unit in 500 mls @ 555 mls/hr IV TITRATE [facility] Tranexamic Acid 1,000 mg/ (Sodium Chloride) 110 mls @ 660 mls/hr IV ONETIME PRN PRN Reason: Bleeding Ampicillin Sodium 1 gm/ Sodium (Chloride) 50 mls @ 100 mls/hr IV Q6H [facility] Lidocaine HCl (Xylocaine 1%) 50 ml INJECT ONETIME PRN PRN Reason: Laceration repair Methylergonovine Maleate (Methergine) 0.2 mg IM ASDIRECTED PRN PRN Reason: Post Hemorrhage Misoprostol (Cytotec) 200 mcg PO ONETIME PRN PRN Reason: Post Hemorrhage Nalbuphine HCl (Nubain) 10 mg IVPUSH Q1H PRN PRN Reason: Pain (severe 7-10) Last Admin: 12/03/18 20:55 Dose: 10 mg Sodium Chloride (Saline Flush) 10 ml FLUSH ASDIRECTED PRN PRN Reason: Keep Vein Open Sodium Chloride (Saline Flush) 2.5 ml FLUSH ASDIRECTED PRN PRN Reason: Keep Vein Open Sodium Chloride (Normal Saline) 10 ml IV ASDIRECTED PRN PRN Reason: IV Use Sterile Water (Sterile Water For Irrigation) 1,000 ml IRR ASDIRECTED PRN PRN Reason: delivery Discontinued Medications Ampicillin Sodium (Ampicillin) Confirm Administered Dose 2 gm IV .STK-MED ONE Stop: 12/03/18 20:33 Last Admin: 12/03/18 20:47 Dose: 2 gm Ampicillin Sodium (Ampicillin) Confirm Administered Dose 1 gm IV .STK-MED ONE Stop: 12/04/18 00:35 Bupivacaine HCl (Sensorcaine-Mpf 0.25%) Confirm Administered Dose 10 ml .ROUTE .STK-MED ONE Stop: 12/04/18 00:54 Fentanyl (Sublimaze) Confirm Administered Dose 100 mcg .ROUTE .STK-MED ONE Stop: 12/03/18 21:45 Ampicillin Sodium 2 gm/ Sodium (Chloride) 50 mls @ 100 mls/hr IV Q6H [facility] Sodium Chloride (Normal Saline) Confirm Administered Dose 100 mls @ as directed .ROUTE .STK-MED ONE Stop: 12/03/18 20:33 Fentanyl/Bupivacaine HCl (Xuhvjgrw-Eqiej-Ov 2 Mcg/Ml-0.125%) Confirm Administered Dose 100 mls @ as directed .ROUTE .STK-MED ONE Stop: 12/03/18 21:45 Sodium Chloride (Normal Saline) Confirm Administered Dose 50 mls @ as directed .ROUTE .STK-MED ONE Stop: 12/04/18 00:41 Lidocaine/Epinephrine (Lidocaine 1.5%-Epi 1:200,000) Confirm Administered Dose 5 ml IJ .STK-MED ONE Stop: 12/03/18 21:45 Terbutaline Sulfate (Brethine) Confirm Administered Dose 1 mg .ROUTE .STK-MED ONE Stop: 12/04/18 00:38 - Exam General: Alert, Oriented, Cooperative, No Acute Distress Lungs: Normal Respiratory Effort GI/Abdominal Exam: Soft, Non-Tender (Female) Exam: Normal External Exam, Normal Bimanual Exam, Vaginal Bleeding, Vaginal Tears Back Exam: Normal Inspection, Full Range of Motion Extremities: Normal Inspection, Normal Range of Motion, Non-Tender, No Pedal Edema, Normal Capillary Refill Skin: Warm, Dry, Intact Wound/Incisions: Healing Well Neurological: No New Focal Deficit Psy/Mental Status: Alert, Normal Affect, Normal Mood - Problem List & Annotations (1) Supervision of normal IUP (intrauterine ) in multigravida SNOMED Code(s): 722328593, 021896953, 285484419 Code(s): Z34.80 - ENCOUNTER FOR SUPRVSN OF NORMAL , UNSP TRIMESTER Status: Acute Priority: High Current Visit: Yes Qualifiers: Trimester: third trimester Qualified Code(s): Z34.83 - Encounter for supervision of other normal , third trimester (2) (normal spontaneous vaginal delivery) SNOMED Code(s): 91381571 Code(s): O80 - ENCOUNTER FOR FULL-TERM UNCOMPLICATED DELIVERY Status: Acute Current Visit: Yes - Problem List Review Problem List Initiated/Reviewed/Updated: Yes - My Orders Last 24 Hours: My Active Orders 12/04/18 00:30 Ampicillin 1 gm Sodium Chloride 0.9% [Normal Saline] 50 ml IV Q6H - Plan Plan:: Labor A: 23yo EDC 12/15/2018 38 2/7wks O+, RI, GBS pos. Comes in active labor. 6cm, intact P: Admit, Amp for GBS pos. IV pain meds until epidural, anticipate . Dr Smith updated Delivery A: viable male, APGARS 9/10, Wt: 7lb 8oz. EBL 100cc. 1st deg lac with repair. Mother and baby stable P: Routine pp plan of care
[2018-12-04] MEDS ORDERED: oxyCODONE 5 MG Tab PO PRN (02:26)
[2018-12-04] MEDS ORDERED: Acetaminophen 500 MG Tab PO PRN ×2 (02:26)
[2018-12-04] MEDS ORDERED: Lanolin 100% Cream 7 GM Tube TOP PRN (02:26)
[2018-12-04] MEDS ORDERED: Ibuprofen 400 MG Tab PO PRN (02:26)
[2018-12-04] MEDS ORDERED: Bisacodyl 10 MG Supp RECTAL PRN (02:26)
[2018-12-04] MEDS ORDERED: Witch Hazel Medicated Pads 40/Jar TOP PRN (02:26)
[2018-12-04] MEDS ORDERED: Benzocaine/Menthol 20%-0.5% Spray 78 GM Cannister TOP PRN (02:26)
[2018-12-04] MEDS: Ibuprofen 800 MG Tab PO PRN ×2 (04:12→15:03)
--- NOTE | 2018-12-04 09:04 | PCM48HPAN ---
Post Anesthesia Note - EVALUATION WITHIN 48HRS OF ANESTHETIC Vital Signs in Normal Range: Yes Patient Participated in Evaluation: Yes Respiratory Function Stable: Yes Airway Patent: Yes Cardiovascular Function Stable: Yes Hydration Status Stable: Yes Pain Control Satisfactory: Yes Nausea and Vomiting Control Satisfactory: Yes Mental Status Recovered: Yes Resp Rate: 18 - COMMENTS/OBSERVATIONS Free Text/Narrative:: no anesthesia problems
[2018-12-04] MEDS: Docusate Sodium 100 MG Cap PO PRN (09:31)
--- NOTE | 2018-12-05 07:19 | PCM48HPAN ---
Post Anesthesia Note - EVALUATION WITHIN 48HRS OF ANESTHETIC Vital Signs in Normal Range: Yes Patient Participated in Evaluation: Yes Respiratory Function Stable: Yes Airway Patent: Yes Cardiovascular Function Stable: Yes Hydration Status Stable: Yes Pain Control Satisfactory: Yes Nausea and Vomiting Control Satisfactory: Yes Mental Status Recovered: Yes Resp Rate: 18
[2018-12-05] MEDS: Docusate Sodium 100 MG Cap PO PRN (09:37)
--- NOTE | 2018-12-05 10:45 | PCM.PNPP ---
- General Info Date of Service: 12/05/18 Functional Status: Reports: Pain Controlled - Review of Systems General: Reports: No Symptoms HEENT: Reports: No Symptoms Pulmonary: Reports: No Symptoms Cardiovascular: Reports: No Symptoms Gastrointestinal: Reports: No Symptoms Genitourinary: Reports: No Symptoms Musculoskeletal: Reports: No Symptoms Skin: Reports: No Symptoms Neurological: Reports: No Symptoms Psychiatric: Reports: No Symptoms - General Info Date of Service: 12/05/18 - Patient Data Vital Signs - Most Recent: Last Vital Signs Temp 36.9 C 12/05/18 08:00 Pulse 73 12/05/18 08:00 Resp 16 12/05/18 08:00 BP 109/61 12/05/18 08:00 Pulse Ox 94 L 12/05/18 08:00 Weight - Most Recent: 81.647 kg Med Orders - Current: Current Medications Acetaminophen (Tylenol Extra Strength) 500 mg PO Q4H PRN PRN Reason: Pain Acetaminophen (Tylenol Extra Strength) 1,000 mg PO Q4H PRN PRN Reason: Pain Benzocaine/Menthol (Dermoplast Pain Relief 20%-0.5% [place]) 78 gm TOP ASDIRECTED PRN PRN Reason: Perineal Comfort Measure Bisacodyl (Dulcolax) 10 mg RECTAL ONETIME PRN PRN Reason: Constipation Docusate Sodium (Colace) 100 mg PO BID PRN PRN Reason: Constipation Last Admin: 12/05/18 09:37 Dose: 100 mg Emollient Ointment (Lansinoh Hpa) 0 gm TOP ASDIRECTED PRN PRN Reason: Sore Nipples Last Admin: 12/05/18 09:37 Dose: 7 tube Ibuprofen (Motrin) 400 mg PO Q4H PRN PRN Reason: Pain Ibuprofen (Motrin) 800 mg PO Q6H PRN PRN Reason: Pain Last Admin: 12/04/18 15:03 Dose: 800 mg Oxycodone HCl (Oxycodone) 5 mg PO Q2H PRN PRN Reason: Pain Witch Buffy (Tucks) 1 pad TOP ASDIRECTED PRN PRN Reason: comfort care Last Admin: 12/04/18 04:13 Dose: 1 applic Discontinued Medications Ampicillin Sodium (Ampicillin) Confirm Administered Dose 2 gm IV .STK-MED ONE Stop: 12/03/18 20:33 Last Admin: 12/04/18 00:45 Dose: 2 gm Ampicillin Sodium (Ampicillin) Confirm Administered Dose 1 gm IV .ST-MED ONE Stop: 12/04/18 00:35 Bupivacaine HCl (Sensorcaine-Mpf 0.25%) Confirm Administered Dose 10 ml .ROUTE .STK-MED ONE Stop: 12/04/18 00:54 Butorphanol Tartrate (Stadol) 1 mg IVPUSH Q1H PRN PRN Reason: Pain Carboprost Tromethamine (Hemabate Ds) 250 mcg IM ASDIRECTED PRN PRN Reason: Post Hemorrhage Fentanyl (Sublimaze) Confirm Administered Dose 100 mcg .ROUTE .ST-MED ONE Stop: 12/03/18 21:45 Lactated Ringer's (Ringers, Lactated) 1,000 mls @ 150 mls/hr IV ASDIRECTED [facility] Last Admin: 12/03/18 21:01 Dose: 999 mls/hr Oxytocin/Sodium Chloride (Oxytocin 30 Unit/500 Ml-Ns) 30 unit in 500 mls @ 555 mls/hr IV TITRATE [facility] Last Admin: 12/04/18 02:34 Dose: 555 mls/hr Tranexamic Acid 1,000 mg/ (Sodium Chloride) 110 mls @ 660 mls/hr IV ONETIME PRN PRN Reason: Bleeding Ampicillin Sodium 2 gm/ Sodium (Chloride) 50 mls @ 100 mls/hr IV Q6H [facility] Sodium Chloride (Normal Saline) Confirm Administered Dose 0 mls @ as directed .ROUTE .[facility]-MED ONE Stop: 12/03/18 20:33 Last Admin: 12/03/18 20:45 Dose: 300 mls/hr Fentanyl/Bupivacaine HCl (Vzudvlwh-Wfpku-Ka 2 Mcg/Ml-0.125%) Confirm Administered Dose 100 mls @ as directed .ROUTE .ST-MED ONE Stop: 12/03/18 21:45 Ampicillin Sodium 1 gm/ Sodium (Chloride) 50 mls @ 100 mls/hr IV Q6H [facility] Sodium Chloride (Normal Saline) Confirm Administered Dose 50 mls @ as directed .ROUTE .[employer]MED ONE Stop: 12/04/18 00:41 Lidocaine HCl (Xylocaine 1%) 50 ml INJECT ONETIME PRN PRN Reason: Laceration repair Lidocaine/Epinephrine (Lidocaine 1.5%-Epi 1:200,000) Confirm Administered Dose 5 ml IJ .STK-MED ONE Stop: 12/03/18 21:45 Methylergonovine Maleate (Methergine) 0.2 mg IM ASDIRECTED PRN PRN Reason: Post Hemorrhage Misoprostol (Cytotec) 200 mcg PO ONETIME PRN PRN Reason: Post Hemorrhage Nalbuphine HCl (Nubain) 10 mg IVPUSH Q1H PRN PRN Reason: Pain (severe 7-10) Last Admin: 12/03/18 20:55 Dose: 10 mg Sodium Chloride (Saline Flush) 10 ml FLUSH ASDIRECTED PRN PRN Reason: Keep Vein Open Sodium Chloride (Saline Flush) 2.5 ml FLUSH ASDIRECTED PRN PRN Reason: Keep Vein Open Sodium Chloride (Normal Saline) 10 ml IV ASDIRECTED PRN PRN Reason: IV Use Sterile Water (Sterile Water For Irrigation) 1,000 ml IRR ASDIRECTED PRN PRN Reason: delivery Terbutaline Sulfate (Brethine) Confirm Administered Dose 1 mg .ROUTE .STK-MED ONE Stop: 12/04/18 00:38 - Infant Interaction Support Person: - Recovery Exam Fundal Tone: Firm Fundal Level: 1 Fingerbreadths Below Umbilicus Fundal Placement: Midline Lochia Amount: Scant Lochia Color: Rubra/Red Perineum Description: Edematous, Hemorrhoids, Other (see below) Other Perinuem Description: 1st deg laceration Episiotomy/Laceration: Approximated Bladder Status: Voiding - Exam General: Alert, Oriented HEENT: Pupils Equal Neck: Supple Lungs: Clear to Auscultation, Normal Respiratory Effort Cardiovascular: Regular Rate, Regular Rhythm GI/Abdominal Exam: Normal Bowel Sounds, Soft, Non-Tender, No Organomegaly, No Distention, No Abnormal Bruit, No Mass, Pelvis Stable Extremities: Normal Inspection, Normal Range of Motion, Non-Tender, No Pedal Edema, Normal Capillary Refill Skin: Warm, Dry, Intact Wound/Incisions: Healing Well Neurological: No New Focal Deficit Psy/Mental Status: Alert, Normal Affect, Normal Mood - Problem List Review Problem List Initiated/Reviewed/Updated: Yes - My Orders Last 24 Hours: My Active Orders 12/05/18 10:42 Ready for Discharge [RC] PER UNIT ROUTINE - Plan Plan:: Labor A: 23yo EDC 12/15/2018 38 2/7wks O+, RI, GBS pos. Comes in active labor. 6cm, intact P: Admit, Amp for GBS pos. IV pain meds until epidural, anticipate . Dr Smith updated Delivery A: viable male, APGARS 9/10, Wt: 7lb 8oz. EBL 100cc. 1st deg lac with repair. Mother and baby stable P: Routine pp plan of care
[2018-12-05] MEDS: Ibuprofen 800 MG Tab PO PRN (12:56)
== END 2018-12-05 12:59 | disposition home or self-care (01) | DRG 807 ==
LOC: MW.OBCHECK 20:20 → MW.OB 20:22 → MW.OBCHECK 20:31 → OBSVTOIN 12-04 01:55 → MW.OB 12-04 05:21
PROVIDERS: ADMIT Obstetrics & Gynecology; ATTEND Obstetrics & Gynecology
PROC: 10E0XZZ Delivery of Products of Conception, External Approach (ICD-10-PCS; principal; 2018-12-04)
PROC: 0HQ9XZZ Repair Perineum Skin, External Approach (ICD-10-PCS; principal; 2018-12-04)
PROC: 10907ZC Drainage of Amniotic Fluid, Therapeutic from Products of Conception, Via Natural or Artificial Opening (ICD-10-PCS; principal; 2018-12-04)
PROC: 6A550ZT Pheresis of Cord Blood Stem Cells, Single (ICD-10-PCS; principal; 2018-12-04)
PROC: 3E0R3BZ Introduction of Anesthetic Agent into Spinal Canal, Percutaneous Approach (ICD-10-PCS; 2018-12-04)
PROC: 00HU33Z Insertion of Infusion Device into Spinal Canal, Percutaneous Approach (ICD-10-PCS; 2018-12-04)
DX: O99.824 Streptococcus B carrier state complicating childbirth (principal); Z37.0 Single live birth; Z3A.38 38 weeks gestation of pregnancy; O99.62 Diseases of the digestive system complicating childbirth; K21.9 Gastro-esophageal reflux disease without esophagitis; O69.81X0 Labor and delivery complicated by cord around neck, without compression, not applicable or unspecified; O70.0 First degree perineal laceration during delivery
CPT/HCPCS: 36415; 51702; 59025; 59409; 85027; 86850; 86900; 86901; A9270-GY; J0290; J2300; J2590; J3490; J7030; J7120